=== PATIENT | female | born 1990 | race Caucasian/White ===

== ENCOUNTER 2017-04-16 21:03 | Emergency (ER) | payer MEDICAID ==
[~2017-04-16] VITALS: Ht 157.5 cm; Wt 72.0 kg
[2017-04-16 21:59] VITALS: BP 113/79; PULSE 70; RESP 20; TEMP 98.3; O2SAT 98
--- NOTE | 2017-04-16 22:59 | PD ---
HPI Chief Complaint: Headache Time Seen by Provider: 22:48 Travel History International Travel<30 days: No Contact w/Intl Traveler<30days: No Traveled to known affect area: No History of Present Illness HPI The patient is a 26-year-old female who states she has a history of migraine headaches who complains of a bifrontal headache along with photophobia/ phonophobia and nausea and vomiting for 8 hours. She denies any focal neurologic change or fever. She states she cannot be she is on control pills and her last menstrual period was the of last month. The patient also states she has a tightness and gripping feeling in the back of her neck. [facility] Past Medical History LMP: 04 12 17 Social History Tobacco Use: No Allergies-Medications (Allergen,Severity, Reaction): Coded Allergies: Morphine (Verified Adverse Reaction, Severe, Swelling, 04/16/17) Reported Meds & Prescriptions Reported Meds & Active Scripts Active Reported Ibuprofen 600 Mg Tab 600 Mg PO Q6H PRN Excedrin Migraine Caplet (Aspirin/Acetaminophen/Caffeine) 1 Each Tablet 1 Tab PO QID PRN [ Control Pills] 1 Tab PO DAILY Review of Systems Except as stated in HPI: all other systems reviewed are Neg Physical Exam Narrative GENERAL: The patient is alert, oriented 3 in moderate apparent distress with her headache. Her vital signs are normal. SKIN: Focused skin assessment warm/dry. HEAD: Atraumatic. Normocephalic. EYES: Pupils equal and round. No scleral icterus. No injection or drainage. ENT: No nasal bleeding or discharge. Mucous membranes pink and moist. NECK: Trachea midline. No JVD. There is no meningismus present. CARDIOVASCULAR: Regular rate and rhythm. No murmur appreciated. RESPIRATORY: No accessory muscle use. Clear to auscultation. Breath sounds equal bilaterally. GASTROINTESTINAL: Abdomen soft, non-tender, nondistended. Hepatic and splenic margins not palpable. MUSCULOSKELETAL: No obvious deformities. No clubbing. No cyanosis. No edema. NEUROLOGICAL: Awake and alert. No obvious cranial nerve deficits. Motor grossly within normal limits. Normal speech and gait. PSYCHIATRIC: Appropriate mood and affect; insight and judgment normal. Data Data Last Documented VS Vital Signs Date Time Temp Pulse Resp B/P Pulse Ox O2 Delivery O2 Flow Rate FiO2 04/16/17 22:57 20 99 04/16/17 21:59 98.3 70 113/79 Orders Prochlorperazine Inj (Compazine Inj) (04/16/17 23:00) Sumatriptan Inj (Imitrex Inj) (04/16/17 23:00) Lorazepam Inj (Ativan Inj) (04/16/17 23:45) MDM Medical Decision Making Medical Screen Exam Complete: Yes Emergency Medical Condition: Yes Medical Record Reviewed: Yes Differential Diagnosis Migraine headache, tension headache, tension migraine combination headache, normal pressure hydrocephalus, cluster headache, subarachnoid hemorrhagehighly unlikely Narrative Course It is now midnight. The patient's headache is completely resolved as is the nausea. Because there was a neck tightness and tension component to this headache as well as symptoms suggesting of migraine initially, this is a tension /migraine combination headache. Plan: The patient will be given a prescription for Fioricet. Diagnosis Primary Impression: Headache, migraine Additional Impression: Tension headache Additional Instructions: This appears to be both of migraine headache with a tension component. I wrote a prescription for Fioricet the next time you get this headache to see if this works. Follow-up with a primary care physician next week about this. Med/Other Pt SpecificInfo: Prescription(s) given Scripts Fvuoyshpvm-Ftacelhhhclki-Szgvrnto (Fioricet)50-300-40 Mg Cap1-2 Cap PO Q6H PRN ( HEADACHE) #30 CAP Ref 0 Prov:Sancho Kaufman MD 04/17/17 Disposition: 01 DISCHARGE HOME Condition: Stable Sancho Kaufman MD Apr 16, 2017 22:59
[2017-04-16] MEDS ORDERED: PROCHLORPERAZINE INJ 10 MG/2 ML VIAL IM ONE (23:00)
[2017-04-16] MEDS ORDERED: SUMAtriptan INJ 6 MG/0.5 ML VIAL SQ ONE (23:00)
[2017-04-16] MEDS ORDERED: BIRTH CONTROL PILLS PO (23:05)
[2017-04-16] MEDS ORDERED: IBUP-232 PO (23:07)
[2017-04-16] MEDS ORDERED: EXCETAB30 PO (23:07)
[2017-04-16] MEDS ORDERED: LORazepam 2 MG/ML VIAL IM ONE (23:45)
[2017-04-17] MEDS ORDERED: BUTA1CAP PO (00:08)
[2017-04-17 00:40] VITALS: BP 129/88
== END 2017-04-17 00:42 | disposition home or self-care (01) ==
LOC: EDBD → PHED 21:03
DX: G43.909 Migraine, unspecified, not intractable, without status migrainosus (principal); G44.209 Tension-type headache, unspecified, not intractable
CPT/HCPCS: 96372; 99284; J0780; J2060; J3030